=== PATIENT | male | born 1985 | race Caucasian/White ===

== ENCOUNTER 2018-01-14 17:09 | Emergency (ER) | payer OTHER ==
[2018-01-14 17:18] VITALS: BP 150/94
[2018-01-14] MEDS ORDERED: BUPIVACAINE HCL 0.5 % INJ/PF 30 ML SDV INFIL ONE (18:05)
[2018-01-14] MEDS ORDERED: AMOXICILLIN TRIHYDRATE 500 MG CAPSULE PO ONE (18:07)
--- NOTE | 2018-01-14 18:19 | ER Document Report ---
HPI - HPI Patient complains to provider of: Right ear pain Onset: This morning Onset/Duration: Worse Quality of pain: Sharp Pain Level: 5 Context: Patient presents complaining of right ear pain that started today. Patient denies any trauma to the ear. Patient denies any drainage from the ear. Patient denies any fever. Patient does report recent cold symptoms about a week ago. Associated Symptoms: Earache. denies: Fever, Nausea, Vomiting Exacerbated by: Denies Relieved by: Denies Similar symptoms previously: No Recently seen / treated by doctor: No - ROS ROS below otherwise negative: Yes Systems Reviewed and Negative: Yes All other systems reviewed and negative - CONSTITUTIONAL Constitutional: DENIES: Fever - EENT EENT: REPORTS: Ear Pain - RESPIRATORY Respiratory: DENIES: Coughing - DERM Skin Color: Normal Skin Problems: None Past Medical History - General Information source: Parent - Social History Smoking Status: Never Smoker Frequency of alcohol use: None Drug Abuse: None Occupation: contractor Family History: Reviewed & Not Pertinent Musculoskeltal Medical History: Reports Other - Chronic back pain Surgical Hx: Negative Vertical Provider Document - CONSTITUTIONAL Agree With Documented VS: Yes Exam Limitations: No Limitations General Appearance: Mild Distress - INFECTION CONTROL TRAVEL OUTSIDE OF THE [place] IN LAST 30 DAYS: No - HEENT HEENT: Atraumatic, Normocephalic Notes: Bulging right TM with purulent effusion, no evidence of rupture, no mastoid tenderness or swelling - NECK Neck: Normal Inspection, Supple - RESPIRATORY Respiratory: Breath Sounds Normal, No Respiratory Distress - CARDIOVASCULAR Cardiovascular: Regular Rate, Regular Rhythm - MUSCULOSKELETAL/EXTREMETIES Musculoskeletal/Extremeties: MAEW - NEURO Level of Consciousness: Awake, Alert, Appropriate - DERM Integumentary: Warm, Dry, No Rash Course - Re-evaluation Re-evalutation: 01/14/18 18:11 Patient with extremely exaggerated pain response to his physical exam findings. Patient is already on high-dose narcotics daily for chronic back pain. Patient advised that no additional narcotics will be given today. Patient cursing and belligerent with staff. 01/14/18 Patient feels that eardrops only worsened his pain symptoms. Patient declines using topical medication to help with his pain. Patient would like a dose of antibiotics to be given parenterally to help hasten his resolution of symptoms. - Vital Signs Vital signs: Temp Pulse Resp BP Pulse Ox 98.3 F 83 28 H 150/94 H 99 01/14/18 17:16 01/14/18 17:16 01/14/18 17:16 01/14/18 17:16 01/14/18 17:16 Discharge - Discharge Clinical Impression: Otitis media Qualifiers: Otitis media type: suppurative Chronicity: acute Laterality: right Recurrence: not specified as recurrent Spontaneous tympanic membrane rupture: without spontaneous rupture Qualified Code(s): H66.001 - Acute suppurative otitis media without spontaneous rupture of ear drum, right ear Condition: Stable Disposition: HOME, SELF-CARE Instructions: Amoxicillin ([facility]), Otitis Media ([facility]) Additional Instructions: Return immediately for any new or worsening symptoms Followup with your primary care provider, call tomorrow to make a followup appointment Prescriptions: Amoxicillin 500 mg PO TID #30 tablet Referrals: [facility] [Provider Group] - Follow up as needed
[2018-01-14] MEDS ORDERED: CEFTRIAXONE INJ 1000 MG VIAL IM ONE (18:30)
[2018-01-14] MEDS ORDERED: LIDOCAINE 1% INJ-PF (10 MG/ML) 30 ML SDV INJ ONE (18:32)
== END 2018-01-14 18:54 | disposition home or self-care (01) ==
LOC: ER 17:09
DX: H66.001 Acute suppurative otitis media without spontaneous rupture of ear drum, right ear (principal); H92.01 Otalgia, right ear; M54.9 Dorsalgia, unspecified; G89.29 Other chronic pain; Z79.899 Other long term (current) drug therapy
CPT/HCPCS: 99282; 96372; J3490 ×2; J0696